=== PATIENT | male | born 1975 | race Caucasian/White ===

== ENCOUNTER 2022-03-25 09:05 | Outpatient (CLI) | payer BC, SELFPAY ==
[2022-03-25 09:33] LABS: Basophils Absolute Auto 0.04 K/uL (0.00-0.30); Basophils Percent Auto 0.4 % (0.0-3.0); Eosinophils Absolute Auto 0.35 K/uL (0.00-0.50); Eosinophils Percent Auto 3.9 % (0.0-7.0); Hematocrit 46.7 % (37.0-53.0); Hemoglobin* 16.4 gm/dL (13.5-17.5); Lymphocytes Absolute Auto 2.43 K/uL (0.90-2.90); Lymphocytes Percent Auto 26.9 % (20-44); Mean Corpuscular HGB Conc 35 gm/dL (32-36); Mean Corpuscular Hemoglobin 31 pg (26-34); Mean Corpuscular Volume 87 fL (80-100); Monocytes Absolute Auto 0.69 K/UL (0.00-0.90); Monocytes Percent Auto 7.6 % (0.0-11.0); Neutrophils Absolute Auto 5.53 K/uL (1.7-7.0); Neutrophils Percent Auto 61.2 % (42.0-72.0); Platelet Count* 243 K/uL (140-440); Red Blood Count 5.38 m/uL (4.30-5.90); White Blood Count* 9.04 K/uL (4.50-11.00)
[2022-03-25 09:38] LABS: Blood Urea Nitrogen* 10 mg/dl (8-26); Carbon Dioxide* 26 mmol/L (20-32); Chloride* 102 mmol/L (98-109); Glucose* 104 mg/dl (60-115); Ionized Calcium* 1.13 mmol/L (1.11-1.33); Potassium* 3.4 mmol/L (3.5-4.9); Slide Review Reflex No; Sodium* 140 mmol/L (138-146)
[2022-03-25 13:57] LABS: Cholesterol* 239 mg/dL (90-199); HDL Cholesterol* 42 mg/dL (>=40); LDL Cholesterol Calculated 146 mg/dL (<100); Triglycerides* 255 mg/dL (40-149)
[2022-03-25 14:29] LABS: PSA Screen* 2.28 ng/mL (0.10-4.00)
== END 2022-03-25 09:06 | disposition home or self-care (01) ==
PROVIDERS: PCP Family Medicine; Visit Provider Family Medicine
DX: Z00.00 Encounter for general adult medical examination without abnormal findings (principal); I10 Essential (primary) hypertension; Z12.5 Encounter for screening for malignant neoplasm of prostate; Z13.6 Encounter for screening for cardiovascular disorders
CPT/HCPCS: 80061; 84153; 85025

== ENCOUNTER 2022-05-09 10:53 | Outpatient (CLI) | payer BC, SELFPAY ==
[2022-05-09 16:10] LABS: Chlamydia DNA Amplified* NOT DETECTED (No Detected); GC DNA Amplified* NOT DETECTED (No Detected)
== END 2022-05-09 10:54 | disposition home or self-care (01) ==
PROVIDERS: PCP Family Medicine; Visit Provider Family Medicine
DX: Z00.00 Encounter for general adult medical examination without abnormal findings (principal); I10 Essential (primary) hypertension; N45.1 Epididymitis; R31.9 Hematuria, unspecified
CPT/HCPCS: 87086; 87491; 87591

== ENCOUNTER 2022-05-21 12:51 | Outpatient (CLI) | payer BC, SELFPAY ==
--- NOTE | 2022-05-21 13:00 | CRLHL7_ITS ---
For Patients: As a result of the Century Cures Act, medical imaging exams and procedure reports are released immediately into your electronic medical record. You may view this report before your referring provider. If you have questions, please contact your health care provider. INDICATION: Hematuria. TECHNIQUE: CT abdomen and pelvis urogram without and with 100 cc Isovue 370 contrast. Contrast images were obtained in the nephrographic and delayed phases. COMPARISON: None. FINDINGS: KIDNEYS: The unenhanced images demonstrate a 6 millimeter stone within the midportion of the left kidney. A smaller stone measuring 3 millimeters is located within the lower pole of the left kidney. No right-sided stones. There is also a stone within the left distal ureter just above the ureterovesical junction measuring 6.7 millimeters. The right ureter is normal. Mild distention of the left ureter is present with mild periureteral stranding at the inferior aspect. The kidneys are normal in caliber and demonstrate normal uptake and excretion of IV contrast. There is a simple water attenuation cyst in the upper pole of the right kidney measuring 1.1 cm. A simple cyst is also present within the lower pole of the left kidney measuring 8 millimeters. No solid masses or perinephric stranding. Normal opacification of the left renal collecting systems aside from the left-sided stone material. URINARY BLADDER: The urinary bladder is normal in caliber and without evidence of mass, wall thickening, or inflammation. Prostate calcifications are present. The prostate is not particularly enlarged. OTHER: GI tract is normal in caliber and appearance. Fatty liver. Spleen, pancreas, and adrenal glands are normal. No mass or adenopathy. Lung bases clear. No fracture. Gallbladder incompletely distended. IMPRESSION: 1. 6 millimeters stone in the distal left ureter just above the left UVJ. 6 millimeter stone in the midportion left kidney and 3 millimeter stone lower pole left kidney. 2. Mild left distal hydroureter and periureteral stranding. Mild left hydronephrosis. Please note that all CT scans at this facility use dose modulation, iterative reconstruction, and/or weight-based dosing when appropriate to reduce radiation dose to as low as reasonably achievable. Dictated by Chencho Grover MD @ 05/22/2022 12:25:09 PM (Electronically Signed)
== END 2022-05-21 12:52 | disposition home or self-care (01) ==
LOC: CT 12:52
PROVIDERS: PCP Family Medicine; Visit Provider Family Medicine
DX: R31.9 Hematuria, unspecified (principal); N20.1 Calculus of ureter; N13.30 Unspecified hydronephrosis
CPT/HCPCS: 74178; Q9967

== ENCOUNTER 2022-06-17 10:24 | Outpatient (CLI) | payer BC, SELFPAY ==
--- OUTSIDE RECORDS SUMMARY | 2022-06-17 10:36 | XMS_ITS | Encounter Summary ---
:1975 Author Care Team Providers Name Role Phone Narendra Crowley MD Primary Care Provider [phone] Reason for Visit Kidney Stones Assessment and Plan 1. Kidney stone left side- 3mm and 6mm renal, 6.7mm UVJ on CT from 05/23/[address]- if distal stone still presen t then proceed with URS and possible stent- discussed risks of procedure in detail as well as expectations with ureteral stent - if distal stone has passed on CT then recommend KUB in 6mo to recheck renal stones - We discussed the natural history of ki dney stones and risk factors for their formation. - We discussed the various treatment opt ions available including: watchful waiting (spontaneous passage), ureteroscopy with laser lithotripsy. We discussed the anticipated stone free rate give the size and location of the patient's stone cassie en. Risks and benefits of each course of action discussed in detail. ? urinalysis, dipstick ? CT, abdomen + pelvis, w/o contrast Discussion Note: None recorded.Patient educational handouts: No information available. Plan of Care Reminders Provider Appointments None recorded. ? ? Lab Urinalysis, Dipstick 06/05/2022 [facility] Referral None recorded. ? ? Procedures None recorded. ? ? Surgeries None recorded. ? ? Imaging CT, Abdomen + Pelvis, W/o 06/05/2022 [facility] Contrast Medications Name Start Date ? ? fluticasone propionate 50 mcg/actuation nasal spray,friedman spension ? USE 2 SPRAYS IN EACH NOSTRIL DAILY losartan 100 mg-hydrochlorothiazide 12.5 mg tablet ? TAKE 1 TABLET BY MOUTH EVERY DAY rosuvastatin 10 mg tablet ? TAKE 1 TABLET BY MOUTH AT BEDTIME Medications Administered None recorded. Vitals Height Weight BMI 5 ft 9 in 225 lbs 33.2 kg/m2 Results Lab Results Date Name Specimen Result Interpretation Description Value Range Status Address ? 06/05/2022 Urinalysis, ? Color-Status Yellow ? ? [facility]: [address], [place] ? ? ? Clarity-Status Clear ? ? [facility]: [address] [place] ? ? ? Glucose-Status Negative ? ? [facility]: [address], [place] ? ? ? Bilirubin-Status Negative ? ? [facility]: [address], [place] ? ? ? Ketones-Status Negative ? ? [facility]: [address], [place] ? ? ? Sp 1.010 ? ? [facility]: [address], [place] ? ? ? pH-Status 7.0 ? ? [facility]: [address], [place] ? ? ? Nitrates-Status negative ? ? [facility]: [address], [place] ? ? ? Blood-Status Negative ? ? [facility]: [address], [place] ? ? ? Leuko-Status Negative ? ? [facility]: [address], [place] ? ? ? Specimen Type Voided ? ? [facility]: [address], [place] Allergies Code Code System Name Reaction Severity Onset 8896 RxNorm Pseudoephedrine Palpitations ? ? Problems None recorded. Procedures Date Name Performed by ? 06/05/2022 CT, Abdomen + Pelvis, W/o Contrast [facility] [address] [place] [id number] (Work Place) Vaccine List None recorded. Social History Tobacco Smoking Status Never Smoker What was the date of your most recent tobacco screening? Family History Relation Problem Onset Age of Age Notes Father History of calculus of kidney (No Information) N/A and brother Father Family history of Hypertension (No Information) N/A (No Notes) Functional Status Unknown. Past Encounters 06/05/2022 [facility]: [address], [place] [address], Ph. History of Present Illness Note: <div>47yo male here today for evaluation of kidney stones. He had an episode of gross hematuria and so CT was obtained. CT from 05/23 notable for a 3mm and 6mm left renal calculus as well as a 6.7mm left distal ureteral calculus. Has never passed a kidney stone before. Also has had some scrotal pain intermittently. Denies any flank or other pain since last week. No fevers/chills. He has not been straining his urine. </div><div>
</div><div>Notes he also had an episode of gross hematuria 2 years ago but did not get this checked out d/t COVID. </div><div& gt;
</div><div>Mhx: HTN</div><div>Fhx: nephrolithiasis in dad and brother </div><div>
</div><div>UA trace blood </div> Review of Systems ? Comprehensive General Adult ROS Reported By: Patient Constitutional: Constitutional: no fever, no chills Eyes: Eyes: no dry eyes, no vision change, no irritation Endocrine: Endocrine: no fatigue, no in creased thirst Cardiovascular: Cardiovascular: no chest zain n, no palpitations Integumentary: Skin: no rashes, no change i n skin color Respiratory: Respiratory: no wheezing, no cough, no shortness of breath Gastrointestinal: Gastrointestinal: no abdomin al pain, no nausea, no vomiting, no constipation, no GERD Musculoskeletal: Musculoskeletal: no neck zain n, no back pain Neurologic: Neurologic: no tremor, no di zziness, no numbness, no headaches Genitourinary: Genitourinary: no incontinen ce, no difficulty urinating ENMT: Ears: no ear pain. Mouth/Thr oat: no sore throat Allergic/Immunologic: Allergy/Immunologic: no itch ing, no hives Hematologic/Lymphatic: Hematologic/Lymphatic no swo llen glands, no excessive bleeding Psychiatric: Psych: no hallucinations, (n ormal) sleep disturbances: mismatch of sleep / wake camilo edule with lifestyle needs Physical Exam ? Notes: <div>Constitutional: general ly well appearing, NAD</div><div>Eyes: no icterus</div><div>ENT: normo cephalic, atraumatic </div><div>Respiratory: breathing unlabored </div><d iv>Cardiovascular: chest wall symmetric </div><div>GI: abd soft, NT, ND</div><div>Back/Flank: no CVAT bilaterally </div><div>Skin: well perfus ed </div><div><div>Musculoskeletal: moves all extremities</div><div>
</ div></div><div>Neurologic: no focal deficits </div><div>Neuropsychiatric: A&Ox3</div>
--- OUTSIDE RECORDS SUMMARY | 2022-06-17 10:36 | XMS_ITS ---
:1975 Author Care Team Providers Name Role Phone RONALD CARBAJAL MD Primary Care Provider [phone] Allergies Code Code System Name Reaction Severity Status Onset 8896 RxNorm Pseudoephedrine Palpitations ? Active ? Medications Name Status Start Date Stop Date ? ? ciprofloxacin 250 mg tablet Completed ? 05/09 TAKE 1 TABLET BY MOUTH EVERY 12 HOURS FOR 5 DAYS doxycycline hyclate 100 mg capsule Completed ? 06/05/2022 TAKE 1 CAPSULE BY MOUTH TWICE A DAY fluticasone propionate 50 mcg/actuation nasal spray,suspension A ctive ? Not available USE 2 SPRAYS IN EACH NOSTRIL DAILY lisinopril 10 mg tablet Completed ? 06/05/20 22 TAKE 1 TABLET BY MOUTH EVERY DAY losartan 100 mg-hydrochlorothiazide 12.5 mg tablet Active ? Not available Paxlovid 300 mg (150 mg x 2)-100 mg tablets in a dose pack (EUA) Completed ? 06/05/2022 TAKE 2 TABS OF NIRMATRELVIR AND 1 TAB RITONAVIR 2 TIMES DAILY F OR 5 DAYS prednisone 20 mg tablet Completed ? 06/05/20 22 TAKE 2 TABLETS BY MOUTH ONCE IN THE MORNING DIRECTED FOR 5 D AYS rosuvastatin 10 mg tablet Active ? Not av ailable TAKE 1 TABLET BY MOUTH AT BEDTIME sodium fluoride 1.1 % dental paste Completed ? 06/05/2022 BRUSH TWICE DAILY FOR 2 MINUTES AND THEN SPIT BUT DON'T RINSE sulfamethoxazole 800 mg-trimethoprim 160 mg tablet Completed ? 06/05/2022 TAKE 1 TABLET BY MOUTH TWICE DAILY DIRECTED FOR 5 DAYS triamcinolone acetonide 0.5 % topical ointment Completed ? 06/05/2022 APPLY TO THE AFFECTED AREA TWICE A DAY FOR 7 DAYS Problems None recorded. Procedures Date Name Performed by ? 06/05/2022 CT, Abdomen + Pelvis, W/o Contrast [facility] [address] [id number] (Work Place) Results Lab Results Date Name Specimen Result [...] ? Sp 1.010 ? ? [facility]: [address], [place] ? [...] [address], [place] 06/05/2022 Urinalysis, ? No observation ? ? ? Dipstick recorded. Past Encounters 06/05/2022 [facility]: [address], [place] [address], Ph. Social History Tobacco Smoking Status Never Smoker Vaccine List None recorded. Plan of Care Reminders Provider Appointments None recorded. ? ? Lab None recorded. ? ? Referral None recorded. ? ? Procedures None recorded. ? ? Surgeries None recorded. ? ? Imaging None recorded. ? ? Vitals Height Weight BMI 5 ft 9 in 225 lbs 33.2 kg/m2
[2022-06-17 13:37] LABS: Albumin* 4.7 g/dL (3.3-5.0)
[2022-06-17 13:39] LABS: Cholesterol* 154 mg/dL (90-199)
[2022-06-17 13:40] LABS: Alanine Aminotransferase* 37 U/L (4-50); Alkaline Phosphatase* 86 U/L (40-150); Aspartate Amino Transferase* 31 U/L (12-35); Bilirubin Direct* 0.1 mg/dL (0.0-0.5); Bilirubin Total* 0.8 mg/dL (0.1-1.5); HDL Cholesterol* 42 mg/dL (>=40); LDL Cholesterol Calculated 69 mg/dL (<100); Total Protein* 7.4 g/dL (6.0-8.3); Triglycerides* 214 mg/dL (40-149)
== END 2022-06-17 10:25 | disposition home or self-care (01) ==
PROVIDERS: PCP Family Medicine; Visit Provider Family Medicine
DX: Z00.00 Encounter for general adult medical examination without abnormal findings (principal); E78.00 Pure hypercholesterolemia, unspecified; I10 Essential (primary) hypertension
CPT/HCPCS: 80061; 80076

== ENCOUNTER 2023-01-09 08:26 | Outpatient (CLI) | payer BC, SELFPAY | END 2023-01-09 08:27 | disposition home or self-care (01) | LOC: OP CLINIC 08:26 | PROVIDERS: PCP Family Medicine; Visit Provider Internal Medicine | DX: Z12.11 Encounter for screening for malignant neoplasm of colon (principal); K63.5 Polyp of colon | CPT/HCPCS: 45380; 88305; J2250; J3010 ==

== ENCOUNTER 2023-06-18 08:54 | Outpatient (CLI) | payer BC, SELFPAY | END 2023-06-18 08:55 | disposition home or self-care (01) | PROVIDERS: PCP Family Medicine; Visit Provider Family Medicine | DX: Z00.00 Encounter for general adult medical examination without abnormal findings (principal); E78.00 Pure hypercholesterolemia, unspecified; I10 Essential (primary) hypertension | CPT/HCPCS: 80053; 80061 ==

== ENCOUNTER 2023-09-23 10:00 | Outpatient (RCR) | payer BC, SELFPAY | END 2023-09-29 10:13 | disposition home or self-care (01) | PROVIDERS: PCP Family Medicine; Visit Provider Family Medicine | DX: T14.8XXA Other injury of unspecified body region, initial encounter (principal); Z18.9 Retained foreign body fragments, unspecified material; Z51.89 Encounter for other specified aftercare | CPT/HCPCS: 97110; 97161 ==

== ENCOUNTER 2023-12-29 09:50 | Outpatient (CLI) | payer BC, SELFPAY ==
--- OUTSIDE RECORDS SUMMARY | 2023-12-29 09:52 | XMS_ITS | Data Portability ---
Author Name Unknown Address [address] [place] [address] Phone [phone] Organization [facility] Address [address] [facility] [address] [place] [address] Assessment No assessment recorded. Plan of Treatment Reminders Order Date Submit Date Provider Last Modified By Organization Details Last Modified Time Details Appointments None recorde d. Lab urinaly sis, dipstic k 2022 023 [email or web address] [facility], [address], [place], [address], 3 12:14:32 urinaly sis, dipstic k 2021 022 [email or web address] [facility], [address], [place], [address], 2 16:19:57 Referral None recorde d. Procedures None recorde d. Surgeries None recorde d. Imaging XR, kidney + ureter + bladder 2022 023 [facility] , [address], [place], [address], 3 15:33:07 CT, abdomen + pelvis, w/o contras t 2021 [facility] [address] [place], [address], 2 08:34:19 Medication Orders None recorde d. Patient TargetsNo targets recorded. Patient InstructionsNo instructions recorded. Reason for Referral None Reported. Results Created Date Observation Date Name Description Value Unit Range Abnormal Flag LastModifiedBy Organization Detail LastModifiedTime 06/05/20 22 06/05/2022 urina lysis , dipst ick Color-Status Yellow Not Available [facility] [place] [address], [place], [address], 06/05/2022 16:07:55 06/05/20 22 06/05/2022 urina lysis , dipst ick Clarity-Stat us Clear Not Available [facility] [address], [place], [address], 06/05/2022 16:07:55 06/05/20 22 06/05/2022 urina lysis , dipst ick Glucose-Stat us Negati ve Not Available [facility] [address], [place], [address], 06/05/2022 16:07:55 06/05/20 22 06/05/2022 urina lysis , dipst ick Bilirubin-St atus Negati ve Not Available [facility] [address], [place], [address], 06/05/2022 16:07:55 06/05/20 22 06/05/2022 urina lysis , dipst ick Ketones-Stat us Negati ve Not Available [facility] [address], [place], [address], 06/05/2022 16:07:55 06/05/20 22 06/05/2022 urina lysis , dipst ick Sp Napoleon-Stat us 1.010 Not Available [facility] [address], [place], [address], 06/05/2022 16:07:55 06/05/20 22 06/05/2022 urina lysis , dipst ick pH-Status 7.0 Not Available [facility] [address], [place], [address], 06/05/2022 16:07:55 06/05/20 22 06/05/2022 urina lysis , dipst ick Nitrates-Sta tus negati ve Not Available [facility] [address], [place], [address], 06/05/2022 16:07:55 06/05/20 22 06/05/2022 urina lysis , dipst ick Blood-Status Negati ve Not Available [facility] [address], [place], [address], 06/05/2022 16:07:55 06/05/20 22 06/05/2022 urina lysis , dipst ick Leuko-Status Negati ve Not Available [facility] [address], [place], [address], 06/05/2022 16:07:55 06/05/20 22 06/05/2022 urina lysis , dipst ick Specimen Type Voided Not Available [facility] [address], [place], [address], 06/05/2022 16:07:55 11/20/19 23 11/19/2022 urina lysis , dipst ick Color-Status Yellow Not Available [facility] [place] [address], [place], [address], 11/19/2022 11:48:10 11/20/19 23 11/19/2022 urina lysis , dipst ick pH-Status 7.5 Not Available [facility] [address], [place], [address], 11/19/2022 11:48:10 06/12/20 22 06/11/2022 CT, abdom en + pelvi s, w/o contr ast No observ ation record ed. [email or web address] [facility] [address] [place], [address], 11/19/2022 12:14:24 11/25/19 23 11/19/2022 XR, kidne y + urete r + bladd er EXAM: XR, KIDNEY + URETER + BLADDE R LOCATI ON: [facility] [place] DATE/T ASHLEY: 023 10:00 AM INDICA TION: Calcul us of kidney . COMPAR HELEN: None. IMPRES JESSIKA: 5 mm stone in the mid left kidney . No defini te right- sided stones . Calcif icatio ns over the pelvis are likely phlebo liths. This report was electr onical ly interp reted by: Filippo francisco MD on 2022 at 07:23 [email or web address] [facility] [address] [place], [address], 05/27/2023 12:55:10 12/09/19 23 11/19/2022 XR, kidne y + urete r + bladd er EXAM: XR, KIDNEY + URETER + BLADDE R LOCATI ON: [facility] [place] DATE/T ASHLEY: 2022 INDICA TION: Calcul us of kidney . COMPAR HELEN: None. IMPRES JESSIKA: 5 mm stone in the mid left kidney . No defini te right- sided stones . Calcif icatio ns over the pelvis are likely phlebo liths. No change from XR, KIDNEY + URETER + BLADDE R with report dated 023 7:23 AM. This report was electr onical ly interp reted by: Filippo francisco MD on 2022 at 08:45 [email or web address] [facility] [address] [place], [address], 05/27/2023 12:55:10 12/09/19 23 11/19/2022 XR, kidne y + urete r + bladd er EXAM: XR, KIDNEY + URETER + BLADDE R LOCATI ON: [facility] [place] DATE/T ASHLEY: 2022 INDICA TION: Calcul us of kidney . COMPAR HELEN: None. IMPRES JESSIKA: 5 mm stone in the mid left kidney . No defini te right- sided stones . Calcif icatio ns over the pelvis are likely phlebo liths. No change from XR, KIDNEY + URETER + BLADDE R with report dated 023 7:23 AM. This report was electr onical ly interp reted by: Filippo francisco MD on 2022 at 08:45 [email or web address] [facility] [address] [place], [address], 05/27/2023 12:55:10 12/09/19 23 11/19/2022 XR, kidne y + urete r + bladd er EXAM: XR, KIDNEY + URETER + BLADDE R LOCATI ON: [facility] [place] DATE/T ASHLEY: 2022 INDICA TION: Calcul us of kidney . COMPAR HELEN: None. IMPRES JESSIKA: 5 mm stone in the mid left kidney . No defini te right- sided stones . Calcif icatio ns over the pelvis are likely phlebo liths. No change from XR, KIDNEY + URETER + BLADDE R with report dated 023 7:23 AM. This report was electr onical ly interp reted by: Filippo francisco MD on 2022 at 08:45 [email or web address] [facility] [address] [place], [address], 05/27/2023 12:55:10 12/09/1911/19/2022 imagi ng techn ician paper work No observ ation record ed. [email or web address] Not Available 09:29:10 05/28/2005/27/2023 XR, kidne y + urete r + bladd er EXAM: XR, KIDNEY + URETER + BLADDE R LOCATI ON: [facility] [place] DATE: 023 INDICA TION: Calcul us of kidney COMPAR HELEN: 023 IMPRES JESSIKA: 5 mm stone noted within the left kidney . No defini te right renal stones identi fied. Normal stool burden . Nonobs tructi ve bowel gas patter n. This report was electr onical ly interp reted by: Andrei Barajas MD on 2022 at 08:09 [email or web address] [facility] [place] [address], [place], [address], 05/28/2023 12:46:14 Result Notes Documentation Provider Name and Address Organization Details Recorded Time Xr, Kidney + Ureter + Bladder : EXAM: XR, KIDNEY + URETER + BLADDER LOCATION: [facility] DATE/TIME: 05/29/2023 10:00 AM INDICATION: Calculus of kidney. COMPARISON: None. IMPRESSION: 5 mm stone in the mid left kidney. No definite right-sided stones. Calcifications over the pelvis are likely phleboliths. This report was electronically interpreted by: Filippo Gallardo MD on 11/24/2022 at 07:23 [address] [facility] [address] [place] [address],[address], [address], [facility] 05/27/2023 12:55:10 Xr, Kidney + Ureter + Bladder : EXAM: XR, KIDNEY + URETER + BLADDER [facility] [place] DATE/TIME: 11/19/2022 INDICATION: Calculus of kidney. COMPARISON: None. IMPRESSION: 5 mm stone in the mid left kidney. No definite right-sided stones. Calcifications over the pelvis are likely phleboliths. No change from XR, KIDNEY + URETER + BLADDER with report dated 11/24/2022 7:23 AM. This report was electronically interpreted by: Filippo Gallardo MD on 12/02/2022 at 08:45 [facility] [address] [place] [address],[address] [place] [address], [address], [facility] 05/27/2023 12:55:10 Xr, Kidney + Ureter + Bladder : EXAM: XR, KIDNEY + URETER + BLADDER LOCATION: [facility] [place] DATE/TIME: 11/19/2022 INDICATION: Calculus of kidney. COMPARISON: None. IMPRESSION: 5 mm stone in the mid left kidney. No definite right-sided stones. Calcifications over the pelvis are likely phleboliths. No change from XR, KIDNEY + URETER + BLADDER with report dated 11/24/2022 7:23 AM. This report was electronically interpreted by: Filippo Gallardo MD on 12/02/2022 at 08:45 [facility] [address] [place] [address],[place] [address], [facility] 05/27/2023 12:55:10 Xr, Kidney + Ureter + Bladder : EXAM: XR, KIDNEY + URETER + BLADDER LOCATION: [facility] DATE/TIME: 11/19/2022 INDICATION: Calculus of kidney. COMPARISON: None. IMPRESSION: 5 mm stone in the mid left kidney. No definite right-sided stones. Calcifications over the pelvis are likely phleboliths. No change from XR, KIDNEY + URETER + BLADDER with report dated 11/24/2022 7:23 AM. This report was electronically interpreted by: Filippo Gallardo MD on 12/02/2022 at 08:45 [address] [address] [address] [place], [place] [id number], [facility] 05/27/2023 12:55:10 Xr, Kidney + Ureter + Bladder : EXAM: XR, KIDNEY + URETER + BLADDER [facility] DATE: 05/27/2023 INDICATION: Calculus of kidney COMPARISON: 11/19/2022 IMPRESSION: 5 mm stone noted within the left kidney. No definite right renal stones identified. Normal stool burden. Nonobstructive bowel gas pattern. This report was electronically interpreted by: Andrei Barajas MD on 05/28/2023 at 08:09 [facility] [address] [place] [address],[place] [address], [facility] 05/28/2023 12:46:14 Procedures Surgical History Date Name Laterality Status Provider Name and Address Organization Details Recorded Time Colonoscopy completed Jovanna [facility] 05/27/2023 12:29:56 Imaging Results Imaging Date Name Status LastModified by Jamie nassar Details LastModified Time 06/11/2022 CT, abdomen + pelvis, w/o contrast completed [email or web address] [facility] [address] [place], [address], 11/19/2022 12:14:24 11/19/2022 XR, kidney + ureter + bladder completed [email or web address] [facility] [address] [place], [address], 05/27/2023 12:55:10 11/19/2022 XR, kidney + ureter + bladder completed [facility] [address] [place], [address], 05/27/2023 12:55:10 11/19/2022 XR, kidney + ureter + bladder completed [email or web address] [facility] [address] [place], [address], 05/27/2023 12:55:10 11/19/2022 XR, kidney + ureter + bladder completed [email or web address] [facility] [address] [place], [address], 05/27/2023 12:55:10 11/19/2022 multimedia technician 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 Medical Equipment None Reported. Allergies Allergen ID Allergen Name Allergen Category Reaction Reaction Severity Criticality Documentation Date Start Date Code Code System Note Provider Name and Address Organization Details Recorded Time 107061 pseudoeph edrine Not available palpitati ons Not available Not available 06/05/2022 8896 [facility] 16:04:51 Medications Name Sig Start Date Stop Date Status Note LastModified by Organization Details LastModified Time doxycycline hyclate 100 mg capsule TAKE 1 CAPSULE BY MOUTH TWICE A DAY 06/05 completed Not Available Not Available Not Available prednisone 20 mg tablet TAKE 2 TABLETS BY MOUTH DAILY WITH FOOD FOR 5 DAYS 05/27 completed Not Available Not Available Not Available triamcinolo ne acetonide 0.5 % topical ointment APPLY TO THE AFFECTED AREA TWICE A DAY FOR 7 DAYS 05/27 completed Not Available Not Available Not Available ciprofloxac in 250 mg tablet TAKE 1 TABLET BY MOUTH EVERY 12 HOURS FOR 5 DAYS 06/05 completed Not Available Not Available Not Available sulfamethox azole 800 mg-trimetho prim 160 mg tablet TAKE 1 TABLET BY MOUTH TWICE DAILY DIRECTED FOR 5 DAYS 06/05 completed Not Available Not Available Not Available lisinopril 10 mg tablet TAKE 1 TABLET BY MOUTH EVERY DAY 06/05 completed Not Available Not Available Not Available fluticasone propionate 50 mcg/actuati on nasal spray,suspe nsion 2 SPRAY INTRANASA LLY EVERY DAY ADMINISTE R INTO EACH NOSTRIL active Not Available Not Available No t Available rosuvastati n 10 mg tablet 10 MG ORALLY AT BEDTIME active Not Available Not Available No t Available losartan 100 mg-hydrochl orothiazide 12.5 mg tablet TAKE 1 TABLET BY MOUTH EVERY DAY active Not Available Not Available No t Available sodium fluoride 1.1 % dental paste BRUSH TWICE DAILY FOR 2 MINUTES AND THEN SPIT BUT DON'T RINSE 06/05 completed Not Available Not Available Not Available GaviLyte-G 236 gram-22.74 gram-6.74 gram-5.86 gram oral solution PLEASE SEE ATTACHED FOR DETAILED DIRECTION S 05/27 completed Not Available Not Available Not Available loratadine 10 mg capsule Take by oral route. active Not Available Not Available No t Available Paxlovid 300 mg (150 mg x 2)-100 mg tablets in a dose pack TAKE 2 TABS OF NIRMATREL VIR AND 1 TAB RITONAVIR 2 TIMES DAILY FOR 5 DAYS 06/05 completed Not Available Not Available Not Available Vitals Date Recorded Body height Body mass index (BMI) Body weight Provider Name and Address Organization Details Last Updated DateTime 06/05/2022 175.26 cm 33.2 kg/m2 766624.28 g Stevan waldron [facility] 06/05/2022 16:04:29 Date Recorded Body height Body mass index (BMI) Body weight Provider Name and Address Organization Details Last Updated DateTime 11/19/2022 175.26 cm 32.5 kg/m2 57380.32 g Herbertbroshalonda Lizcorby waldron [facility] 11/19/2022 11:49:14 Date Recorded Body height Body mass index (BMI) Body weight Provider Name and Address Organization Details Last Updated DateTime 05/27/2023 175.26 cm 32.5 kg/m2 78589.32 g Jovanna [place] [facility] 05/27/2023 12:26:13 Social History Question Answer Notes LastModified by Organizat ion Details LastModified Time Tobacco Smoking Status Never Smoker Stevan waldron [facility] 06/05/2022 16:06:43 What Was The Date Of Your Most Recent Tobacco Screening? 05/27/2023 cassidy Information not available 05/27/2023 Sex: Male Functional Status None recorded. Mental Status None recorded. Family History Relationship Description Onset Age of this Age Resolved Age Notes Father History of calculus of kidney and brother Father Family history of Hypertension Medical History Condition Response Sexually Transmitted Infection N Diabetes N Bleeding Disorder N Other N High Blood Pressure Y Kidney Stones N Cancer N Lung Disease N Depression N High Cholesterol Y GERD/Acid Reflux N Heart Disease N Past Encounters Encounter ID Performer Location Encounter Start Date Encounter Closed Date Diagnosis/Indication Diagnosis SNOMED-CT Code [id number] [facility] [address] [place] [address] 06/05/2022 15:50:44 06/09/2022 11:35:08 Kidney stone [id number] [facility] [address] [place] [address] 11/19/2022 10:43:17 11/22/2022 15:28:52 History of calculus of kidney [id number] [facility] [address] [place] [address] 05/27/2023 11:41:56 06/06/2023 12:03:58 History of calculus of kidney [id number] Health Concerns Section Related Observation LastModified by Organization Meliza ls LastModified Time None Recorded Concern Status LastModified by Organization Details LastModified Time None Recorded Advance Directives Directive None Recorded Payers Encounter Date Sequence Insurance Name Policy Number Policy Guardado Covered Member ID Guardado Member ID Guarantor Name 05/27/2023 1 [employer] [id number] Salvador Walton [id number] Salvador Walton 11/19/2022 1 [employer] [id number] Salvador Walton [id number] Salvador Walton 06/05/2022 1 [employer] [id number] Salvador Walton [id number] Salvador Walton Notes Date Note Type Note Provider Name and Address Organization Details Recorded Time 06/05/2022 text/html HPI Notes: 47yo male here today for evaluation of kidney [...] He has not been straining his urine. Notes he also had an episode of gross hematuria 2 years ago but did not get this checked out d/t COVID. Mhx: HTN Fhx: nephrolithiasis in dad and brother UA trace blood [facility] [id number], [place], [address], [facility] 06/05/2022 17:23:32 11/19/2022 text/html HPI Notes: : 47yo male here today for evaluation of kidney [...] He has not been straining his urine. Notes he also had an episode of gross hematuria 2 years ago but did not get this checked out d/t COVID. Mhx: HTN Fhx: nephrolithiasis in dad and brother 11/19/22: Here today for kidney stone f/u. He passed a stone after last visit and subsequent CT was notable only for several left renal stones. No stone pain or hematuria since last visit. Is working on increasing his hydration. CT 06/11/22- several left intrarenal stones, largest 6mm. No hydronephrosis. KUB today with left renal stones, appears stable UA today is negative [facility] [address] [place] [address],[address], [place], [address], [facility] 11/19/2022 12:14:49 05/27/2023 text/html HPI Notes: : 47yo male here today for evaluation of kidney [...] He has not been straining his urine. Notes he also had an episode of gross hematuria 2 years ago but did not get this checked out d/t COVID. Mhx: HTN Fhx: nephrolithiasis in dad and brother 11/19/22: Here today for kidney stone f/u. He passed a stone after last visit and subsequent CT was notable only for several left renal stones. No stone pain or hematuria since last visit. Is working on increasing his hydration. CT 06/11/22- several left intrarenal stones, largest 6mm. No hydronephrosis. KUB today with left renal stones, appears stable UA today is negative 05/27/23: Here for kidney stone recheck. KUB shows the 6mm left renal stone is stable in size and location. No obvious new stones. No concerns, he has been feeling quite well. Urine has been clear. No back/flank pain. [facility] [id number] [address], [place], [address], [facility] 05/27/2023 12:56:05
--- NOTE | 2023-12-29 10:00 | CT_ITS ---
Patient: EDWINA MILLAN Facility:?[facility] Patient ID:?[id number] Site Patient ID:?[id number]. Site :?[id number] Study:?CT-Sinus WITHOUT-12/29/2023 10:48:53 AM Ordering Physician:?DR. CARBAJAL Final Report: Indication: Chronic sinusitis. Technique: CT of the sinuses performed without IV contrast Comparison: None relevant available Findings: Frontal sinuses: Clear. Ethmoid sinuses: Clear. Maxillary sinuses: Mild mucosal thickening. Sphenoid sinuses: Clear. The ostiomeatal units, sphenoethmoidal and frontoethmoidal recesses are patent. Nasal Cavity: Mild rightward nasal septal deviation. No air-fluid levels. No aggressive periosteal reaction or osseous erosion. The intracranial structures appear grossly intact as visualized. Impression: 1. Minimal maxillary paranasal sinus disease. 2. No evidence of acute sinusitis Please note that all CT scans at this facility use dose modulation, iterative reconstruction, and/or weight-based dosing when appropriate to reduce radiation dose to as low as reasonably achievable. Dictated by Brian Quiñones MD @ 12/29/2023 2:35:51 PM Signed by:?Brian Quiñones MD @12/29/2023 2:35:51 PM (Electronic Signature)
== END 2023-12-29 09:51 | disposition home or self-care (01) ==
LOC: CT 09:50
PROVIDERS: PCP Family Medicine; Visit Provider Family Medicine
DX: J32.9 Chronic sinusitis, unspecified (principal); J32.0 Chronic maxillary sinusitis; H65.90 Unspecified nonsuppurative otitis media, unspecified ear
CPT/HCPCS: 70486

== ENCOUNTER 2024-02-02 19:42 | Outpatient (CLI) | payer BC, SELFPAY ==
--- OUTSIDE RECORDS SUMMARY | 2024-02-02 19:44 | XMS_ITS | Data Portability ---
Author Organization [place] [facility] Address [address] [place] [address] Assessment No assessment recorded. Plan of Treatment Reminders Order Date Submit Date Provider Last Modified By Organization Details Last Modified Time Details Appointments None recorde d. Lab urinaly sis, dipstic k 2022 023 [email or web address] [facility], [address], [place], [address], 3 12:14:32 urinaly sis, dipstic k 2021 022 [email or web address] [facility], [address], [place], [address], 2 16:19:57 Referral None recorde d. Procedures None recorde d. Surgeries None recorde d. Imaging XR, kidney + ureter + bladder 2022 023 [facility] , [address], [place], [address], 3 15:33:07 CT, abdomen + pelvis, w/o contras t [email or web address] , [address], [place], [address], 2 08:34:19 Medication Orders None recorde d. Patient TargetsNo targets recorded. Patient InstructionsNo instructions recorded. Reason for Referral None Reported. Results Created Date Observation Date Name Description Value Unit Range Abnormal Flag LastModifiedBy Organization Detail LastModifiedTime 06/05/20 22 06/05/2022 urina lysis , dipst ick Color-Status Yellow Not Available [facility] [address], [place], [address], 06/05/2022 16:07:55 06/05/20 22 06/05/2022 urina lysis , dipst ick Clarity-Stat us Clear Not Available [facility] [address], [place], [address], 06/05/2022 16:07:55 06/05/20 22 06/05/2022 urina lysis , dipst ick Glucose-Stat us Negati ve Not Available [facility] [address], [place], [address], 06/05/2022 16:07:55 06/05/20 22 06/05/2022 urina lysis , dipst ick Bilirubin-St atus Negati ve Not Available [facility] [address], [place], [address], 06/05/2022 16:07:55 06/05/20 22 06/05/2022 urina lysis , dipst ick Ketones-Stat us Negati ve Not Available [facility] [address], [place], [address], 06/05/2022 16:07:55 06/05/20 22 06/05/2022 urina lysis , dipst ick Sp Cuba-Stat us 1.010 Not Available [facility] [address], [place], [address], 06/05/2022 16:07:55 06/05/20 22 06/05/2022 urina lysis , dipst ick pH-Status 7.0 Not Available [facility] [address], [place], [address], 06/05/2022 16:07:55 06/05/20 22 06/05/2022 urina lysis , dipst ick Nitrates-Sta tus negati ve Not Available [facility] [address], [place], [address], 06/05/2022 16:07:55 06/05/20 22 06/05/2022 urina lysis , dipst ick Blood-Status Negati ve Not Available [facility] [address], [place], [address], 06/05/2022 16:07:55 06/05/20 22 06/05/2022 urina lysis , dipst ick Leuko-Status Negati ve Not Available [facility] [address], [place], [address], 06/05/2022 16:07:55 06/05/20 22 06/05/2022 urina lysis , dipst ick Specimen Type Voided Not Available [facility] [address], [place], [address], 06/05/2022 16:07:55 11/20/19 23 11/19/2022 urina lysis , dipst ick Color-Status Yellow Not Available [facility] [address], [place], [address], 11/19/2022 11:48:10 11/20/19 23 11/19/2022 urina lysis , dipst ick pH-Status 7.5 Not Available [facility] [address], [place], [address], 11/19/2022 11:48:10 06/12/20 22 06/11/2022 CT, abdom en + pelvi s, w/o contr ast No observ ation record ed. [email or web address] [facility] [address], [place], [address], 11/19/2022 12:14:24 11/25/19 23 11/19/2022 XR, kidne y + urete r + bladd er EXAM: XR, KIDNEY + URETER + BLADDE R LOCATI ON: [facility] [place] DATE/T ASHLEY: 023 10:00 AM INDICA TION: Calcul us of kidney . COMPAR HELEN: None. IMPRES JESSIKA: 5 mm stone in the mid left kidney . No defini te right- sided stones . Calcif icatio ns over the pelvis are likely phlebo liths. This report was electr onical ly interp reted by: Filippo francisco MD on 2022 at 07:23 [email or web address] [facility] [address] [place], [address], 05/27/2023 12:55:10 12/09/19 23 11/19/2022 XR, kidne [...] Filippo francisco MD on 2022 at 08:45 [email or web address] 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 [email or web address] Not Available 09:29:10 05/28/2005/27/2023 XR, kidne y + urete r + bladd er EXAM: XR, KIDNEY + URETER + BLADDE R LOCATI ON: [facility] [place] DATE: INDICA TION: Calcul us of kidney COMPAR HELEN: 023 IMPRES JESSIKA: 5 mm stone noted within the left kidney . No defini te right renal stones identi fied. Normal stool burden . Nonobs tructi ve bowel gas patter n. This report was electr onical ly interp reted by: Andrei Barajas MD on 2022 at 08:09 [email or web address] [facility] [address], [place], [address], 05/28/2023 12:46:14 Result Notes Documentation Provider Name and Address Organization Details Recorded Time Xr, Kidney + Ureter + Bladder : EXAM: XR, KIDNEY + URETER + BLADDER LOCATION: [facility] DATE/TIME: 05/29/2023 10:00 AM INDICATION: Calculus of kidney. COMPARISON: None. IMPRESSION: 5 mm stone in the mid left kidney. No definite right-sided stones. Calcifications over the pelvis are likely phleboliths. This report was electronically interpreted by: Filippo Gallardo MD on 11/24/2022 at 07:23 JUNE LOUIE [address] [place] [address],[address], [address], [facility] 05/27/2023 12:55:10 Xr, Kidney + Ureter + Bladder : EXAM: XR, KIDNEY + URETER + BLADDER LOCATION: [facility] DATE/TIME: 11/19/2022 INDICATION: Calculus of kidney. COMPARISON: None. IMPRESSION: 5 mm stone in the mid left kidney. No definite right-sided stones. Calcifications over the pelvis are likely phleboliths. No change from XR, KIDNEY + URETER + BLADDER with report dated 11/24/2022 7:23 AM. This report was electronically interpreted by: Filippo Gallardo MD on 12/02/2022 at 08:45 JUNE LOUIE [address] [place] [address],[address], [address], [facility] 05/27/2023 12:55:10 Xr, Kidney + Ureter + Bladder : EXAM: XR, KIDNEY + URETER + BLADDER LOCATION: [facility] [place] DATE/TIME: 11/19/2022 INDICATION: Calculus of kidney. COMPARISON: None. IMPRESSION: 5 mm stone in the mid left kidney. No definite right-sided stones. Calcifications over the pelvis are likely phleboliths. No change from XR, KIDNEY + URETER + BLADDER with report dated 11/24/2022 7:23 AM. This report was electronically interpreted by: Filippo Gallardo MD on 12/02/2022 at 08:45 JUNE LOUIE [address] [place] [address],[address] [place] [address], [address], [facility] 05/27/2023 12:55:10 Xr, Kidney + Ureter + Bladder : EXAM: XR, KIDNEY + URETER + BLADDER LOCATION: [facility] DATE/TIME: 11/19/2022 INDICATION: Calculus of kidney. COMPARISON: None. IMPRESSION: 5 mm stone in the mid left kidney. No definite right-sided stones. Calcifications over the pelvis are likely phleboliths. No change from XR, KIDNEY + URETER + BLADDER with report dated 11/24/2022 7:23 AM. This report was electronically interpreted by: Filippo Gallardo MD on 12/02/2022 at 08:45 JUNE LOUIE [address] [place] [address],[address] [place] [address], [address], [facility] 05/27/2023 12:55:10 Xr, Kidney + Ureter + Bladder : EXAM: XR, KIDNEY + URETER + BLADDER LOCATION: [facility] DATE: 05/27/2023 INDICATION: Calculus of kidney COMPARISON: 11/19/2022 IMPRESSION: 5 mm stone noted within the left kidney. No definite right renal stones identified. Normal stool burden. Nonobstructive bowel gas pattern. This report was electronically interpreted by: Andrei Barajas MD on 05/28/2023 at 08:09 JUNE LOUIE [address] [place] [address],[address] [place] [address], [address], [facility] 05/28/2023 12:46:14 Procedures Surgical History Date Name Laterality Status Provider Name and Address Organization Details Recorded Time Colonoscopy completed Jovanna waldron [facility] 05/27/2023 12:29:56 Imaging Results Imaging Date Name Status LastModified by [facility] Details LastModified Time 06/11/2022 CT, abdomen + pelvis, w/o contrast completed [email or web address] [facility] [address] [place], [address], 11/19/2022 12:14:24 11/19/2022 XR, kidney + ureter + bladder completed [email or web address] [facility] [address] [place], [address], 05/27/2023 12:55:10 11/19/2022 XR, kidney + ureter + bladder completed [email or web address] [facility] [address] [place], [address], 05/27/2023 12:55:10 11/19/2022 XR, kidney + ureter + bladder completed [email or web address] [facility] [address] [place], [address], 05/27/2023 12:55:10 11/19/2022 XR, kidney + ureter + bladder completed [email or web address] [facility] [address] [place], [address], 05/27/2023 12:55:10 11/19/2022 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 Medical Equipment None Reported. Allergies Allergen ID Allergen Name Allergen Category Reaction Reaction Severity Criticality Documentation Date Start Date Code Code System Note Provider Name and Address Organization Details Recorded Time pseudoeph edrine Not available palpitati ons Not available Not available 06/05/2022 8896 [facility]Norm [place] [facility] [facility] 16:04:51 Medications Name Sig Start Date Stop [...] Updated DateTime 06/05/2022 175.26 cm 33.2 kg/m2 853626.28 g Stevan Botello [facility] 06/05/2022 16:04:29 Date Recorded Body height Body mass index (BMI) Body weight Provider Name and Address Organization Details Last Updated DateTime 11/19/2022 175.26 cm 32.5 kg/m2 44087.32 teo Garay [facility] 11/19/2022 11:49:14 Date Recorded Body height Body mass index (BMI) Body weight Provider Name and Address Organization Details Last Updated DateTime 05/27/2023 175.26 cm 32.5 kg/m2 18642.32 teo Engel [facility] 05/27/2023 12:26:13 Social History Question Answer Notes LastModified by Organizat ion Details LastModified Time Tobacco Smoking Status Never [facility]oker [facility] 06/05/2022 16:06:43 What Was The Date Of Your Most Recent Tobacco Screening? 05/27/2023 cassidy Information not available 05/27/2023 Sex: Male Functional Status None recorded. Mental Status None recorded. Family History Relationship Description Onset Age of this Age Resolved Age Notes Father History of calculus of kidney and brother Father Family history of Hypertension Medical History Condition Response Other N High Blood Pressure Y Kidney Stones N Depression N Lung Disease N GERD/Acid Reflux N Diabetes N Sexually Transmitted Infection N Bleeding Disorder N Cancer N High Cholesterol Y Heart Disease N Past Encounters Encounter ID Performer Location Encounter Start Date Encounter Closed Date Diagnosis/Indication Diagnosis SNOMED-CT Code [id number] JUNE LOUIE [facility] [address] [place] [address] 06/05/2022 15:50:44 06/09/2022 11:35:08 Kidney stone [id number] JUNE LOUIE [facility] [address] [place] [address] 11/19/2022 10:43:17 11/22/2022 15:28:52 History of calculus of kidney [id number] JUNE LOUIE [facility] [address] [place] [address] 05/27/2023 11:41:56 06/06/2023 12:03:58 History of calculus of kidney [id number] Health Concerns Section Related Observation LastModified by Organization Detai ls LastModified Time None Recorded Concern Status LastModified by Organization Details LastModified Time None Recorded Advance Directives Directive None Recorded Payers Encounter Date Sequence Insurance Name Policy Number Policy Guardado Covered Member ID Guardado Member ID Guarantor Name 05/27/2023 1 [employer] [id number] Salvador Walton [id number] Salvador Walton 11/19/2022 1 [employer] [id number] Salvador Walton [id number] Salvador Walton 06/05/2022 1 [employer] [id number] Salvador Walton [id number] Salvador Walton Notes Date Note Type Note [...] and brother UA trace blood JUNE LOUIE [address] [place] [address],[address], [place], [address], [facility] 06/05/2022 17:23:32 11/19/2022 text/html HPI Notes: [...] stable UA today is negative JUNE LOUIE [address] [place] [address],[address], [place], [address], [facility] 11/19/2022 12:14:49 05/27/2023 text/html HPI Notes: : [...] been clear. No back/flank pain. JUNE LOUIE [address] [facility],[address], [place], [address], [facility] 05/27/2023 12:56:05
--- NOTE | 2024-02-23 08:45 | W.PM.SLEEP ---
Sleep Study Details Details Interpreting Provider: Jd Date of Sleep Study: 02/02/24 Sleep Study Details: STUDY TYPE:? Home unattended ? BMI:? 33.2 ORDERING PROVIDER:? Jd INDICATION:? Concerned about sleep apnea ? SLEEP SUMMARY:? 362.9 minutes monitored RESPIRATORY SUMMARY:? AHI 31.2 Low oxygen 82 2.8% of study oxygen less than 90% Snoring 94.6% PERIODIC LIMB MOVEMENTS OF SLEEP:? Not recorded CARDIAC:? Range 63-111, mean 79 IMPRESSION:? Severe obstructive sleep apnea RECOMMENDATION: CPAP is the recommended treatment option. A dental appliance may be effective.
== END 2024-02-02 19:43 | disposition home or self-care (01) ==
LOC: SLEEP 19:42
PROVIDERS: PCP Family Medicine; Visit Provider Otolaryngology
DX: G47.33 Obstructive sleep apnea (adult) (pediatric) (principal)
CPT/HCPCS: 95806

== ENCOUNTER 2024-06-21 09:00 | Outpatient (CLI) | payer BC, SELFPAY | END 2024-06-21 09:01 | disposition home or self-care (01) | PROVIDERS: PCP Family Medicine; Visit Provider Family Medicine | DX: Z00.00 Encounter for general adult medical examination without abnormal findings (principal); I10 Essential (primary) hypertension; E78.00 Pure hypercholesterolemia, unspecified; G47.30 Sleep apnea, unspecified; Z12.5 Encounter for screening for malignant neoplasm of prostate | CPT/HCPCS: 80053; 80061; G0103 ==

== ENCOUNTER 2025-06-22 12:49 | Outpatient (CLI) | payer BC, SELFPAY | END 2025-06-22 12:50 | disposition home or self-care (01) | PROVIDERS: PCP Family Medicine; Visit Provider Family Medicine | DX: E78.00 Pure hypercholesterolemia, unspecified (principal); I10 Essential (primary) hypertension; Z00.00 Encounter for general adult medical examination without abnormal findings | CPT/HCPCS: 80053; 80061; G0103 ==